=== PATIENT | female | born 1945 | race Caucasian/White ===

== ENCOUNTER 2019-07-14 08:29 | Emergency (ER) | payer MEDICARE, BC ==
--- NOTE | 2019-07-14 08:45 | EDM.PDOC ---
ED HPI GENERAL MEDICAL PROBLEM - General Time Seen by Provider: 07/14/19 08:42 Source of Information: Reports: Patient History Limitations: Reports: No Limitations - History of Present Illness INITIAL COMMENTS - FREE TEXT/NARRATIVE: 74-year-old female who reports at approximately 745 this morning she developed a sharp and stabbing type pain in her right scapular area that seemed to radiate to her right lateral chest and into her right shoulder. It was rated by her at this time as a 7/10. It occurred while she was watching TV with her and drinking a cup of coffee. She had no diaphoresis associated with this. There was no dizziness or weakness or near syncope associated with this. No nausea or vomiting. The pain did not seem to get any better or worse with anything that she did. Specifically there was no change with palpation or movement and there was no change with deep breath. The pain has now decreased to a 3/10. No abdominal pain. No fevers or chills. She has had no antecedent symptoms other than recent dyspnea on exertion which was evaluated with some type of test through her video game engineer at [facility] just this last week and she tells me that it was "normal". She has had no cough or nasal congestion. She has been eating and drinking normally. There are no other associated signs or symptoms. There are no other modifying factors. Onset: Today (7:45 AM) Duration: Improving Location: Reports: Chest, Back Quality: Reports: Sharp Severity: Moderate Improves with: Reports: None Worsens with: Reports: None Context: Reports: Other (As above) Associated Symptoms: Reports: No Other Symptoms Treatments DECORATOR LIGHTING FIXTURES: Reports: Other (see below) (Nothing.) chest/back Pain Score (Numeric/FACES): 3 - Related Data Allergies Allergy/AdvReac Type Severity Reaction Status Date / Time No Known Allergies Allergy Verified 07/14/19 08:37 Home Meds: Home Meds Apixaban [Eliquis] 5 mg PO BID 07/14/19 [History] Calcium Citrate 950 mg PO BID 07/14/19 [History] Ferrous Sulfate [Iron] 325 mg PO DAILY 07/14/19 [History] Glucosam/Henry-Msm1/C/Franck/Bosw [Osteo Bi-Flex Caplet] 1 each PO DAILY 07/14/19 [ History] Magnesium Oxide 250 mg PO DAILY 07/14/19 [History] Multivitamin/Iron/Folic Acid [Centrum Adults Tablet] 1 tab PO DAILY 07/14/19 [ History] Omeprazole 40 mg PO DAILY 07/14/19 [History] Oxybutynin [Oxybutynin ER] 10 mg PO BID 07/14/19 [History] Past Medical History Cardiovascular History: Reports: Afib (On Eliquis) Gastrointestinal History: Reports: GERD Genitourinary History: Reports: Other (See Below) (Overactive bladder) Musculoskeletal History: Reports: Other (See Below) (Breasts leg syndrome) - Past Surgical History GI Surgical History: Reports: Cholecystectomy Musculoskeletal Surgical History: Reports: Hip Replacement (Left total hip replacement) Social & Family History - Tobacco Use Smoking Status *Q: Never Smoker - Alcohol Use Alcohol Use History: Yes Alcohol Use in Last Twelve Months: Yes Alcohol Use Frequency: Daily (1 drink every night.) - Living Situation & Occupation Living situation: Reports: (She is here with her ) 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 Denies: Pleuritic Chest Pain, Cough Cardiovascular: Reports: Chest Pain (Right lateral), Dyspnea on Exertion ( Ongoing for some time). Denies: Lightheadedness Endocrine: Reports: No Symptoms GI/Abdominal: Reports: No Symptoms : Reports: No Symptoms Musculoskeletal: Reports: Back Pain (Right subscapular pain) Skin: Reports: No Symptoms Neurological: Reports: No Symptoms Psychiatric: Reports: No Symptoms Hematologic/Lymphatic: Reports: No Symptoms Immunologic: Reports: No Symptoms ED EXAM, GENERAL - Physical Exam Exam: See Below Exam Limited By: No Limitations General Appearance: Alert, WD/WN, Mild Distress Eye Exam: Bilateral Eye: EOMI, Normal Inspection, PERRL Ears: Normal External Exam, Hearing Grossly Normal Ear Exam: Bilateral Ear: Auricle Normal Nose: Normal Inspection, Normal Mucosa, No Blood Throat/Mouth: Normal Inspection, Normal Oropharynx, Normal Voice, No Airway Compromise Head: Atraumatic, Normocephalic Neck: Normal Inspection, Supple, Non-Tender, Full Range of Motion Respiratory/Chest: No Respiratory Distress, Lungs Clear, Normal Breath Sounds, No Accessory Muscle Use, Chest Non-Tender Cardiovascular: Normal Peripheral Pulses, No JVD, No Murmur, Other (Somewhat irregular rhythm with long pauses) Peripheral Pulses: 2+: Radial (L), Radial (R), Dorsalis Pedis (L), Dorsalis Pedis (R) GI/Abdominal: Normal Bowel Sounds, Soft, Non-Tender, No Mass Back Exam: Normal Inspection, Full Range of Motion Extremities: Normal Inspection, Normal Range of Motion, Non-Tender, No Pedal Edema, Normal Capillary Refill Neurological: Alert, Oriented, CN II-XII Intact, Normal Cognition, No Motor/ Sensory Deficits Psychiatric: Normal Affect Skin Exam: Warm, Dry, Intact, Normal Color, No Rash EKG INTERPRETATION EKG Date: 07/14/19 Time: 08:50 Rhythm: Other (What appears to be intermittent heart block and I question second degree type II) [place]: Normal P-Wave: Variable QRS: RBBB ST-T: Normal QT: Prolonged Comparison: NA - No Prior EKG Course - Vital Signs Last Recorded V/S: Last Vital Signs Temp 36.6 C 07/14/19 08:29 Pulse 66 07/14/19 10:32 Resp 17 07/14/19 10:32 BP 129/81 07/14/19 10:32 Pulse Ox 99 07/14/19 10:32 - Orders/Labs/Meds Orders: Active Orders 24 hr Category Date Time Status EKG Documentation Completion [RC] ASDIRECTED Care 07/14/19 09:04 Active Ang Abdomen [CT] Stat Exams 07/14/19 10:50 Taken Ang Chest [CT] Stat Exams 07/14/19 10:50 Taken Ang Pelvis [CT] Stat Exams 07/14/19 09:52 Ordered Sodium Chloride 0.9% [Saline Flush] Med 07/14/19 09:02 Active 10 ml FLUSH ASDIRECTED PRN Peripheral IV Insertion Adult [OM.PC] Routine Oth 07/14/19 09:02 Ordered EKG 12 Lead [EK] Routine Ther 07/14/19 09:02 Ordered Medication Orders Sodium Chloride (Saline Flush) 10 ml FLUSH ASDIRECTED PRN PRN Reason: Keep Vein Open Last Admin: 07/14/19 08:55 Dose: 10 ml Labs: Laboratory Tests 05/04/20 05/04/20 05/04/20 Range/Units 09:15 09:15 09:15 WBC 4.5 (4.5-12.0) X10-3/uL RBC 3.99 (3.23-5.20) x10(6)uL Hgb 12.6 (11.5-15.5) g/dL Hct 37.4 (30.0-51.3) % MCV 93.8 (80-96) fL MCH 31.7 (27.7-33.6) pg MCHC 33.8 (32.2-35.4) g/dL RDW 12.7 (11.5-15.5) % Plt Count 289 (125-369) X10(3)uL MPV 7.1 L (7.4-10.4) fL Neut % (Auto) 57.1 (46-82) % Lymph % (Auto) 25.9 (13-37) % [place] % (Auto) 13.3 H (4-12) % Eos % (Auto) 3 (1.0-5.0) % Baso % (Auto) 1 (0-2) % Neut # (Auto) 2.6 (1.6-8.3) # Lymph # (Auto) 1.2 (0.6-5.0) # Lenoir # (Auto) 0.6 (0.0-1.3) # Eos # (Auto) 0.1 (0.0-0.8) # Baso # (Auto) 0.0 (0.0-0.2) # PT 11.6 H (9.0-11.1) sec INR 1.08 (1.00-1.24) D-Dimer, Quantitative 0.34 (0.0-0.59) mg/LFEU Sodium 137 (135-145) mmol/L Potassium 4.2 (3.5-5.3) mmol/L Chloride 100 (100-110) mmol/L Carbon Dioxide 30 (21-32) mmol/L BUN 12 (7-18) mg/dL Creatinine 0.9 (0.55-1.02) mg/dL Est Cr Clr Drug Dosing 49.35 mL/min Estimated GFR (MDRD) > 60 (>60) BUN/Creatinine Ratio 13.3 (9-20) Glucose 100 (80-116) mg/dL Calcium 8.8 (8.6-10.2) mg/dL Total Bilirubin 0.5 (0.1-1.3) mg/dL AST 27 H (5-25) IU/L ALT 22 (12-36) U/L Alkaline Phosphatase 142 H (56-112) IU/L Troponin I (4.0-60.3) pg/mL C-Reactive Protein (0.5-0.9) mg/dL Total Protein 7.8 (6.0-8.0) g/dL Albumin 3.5 (3.2-4.6) g/dL Globulin 4.3 g/dL Albumin/Globulin Ratio 0.8 07/14/19 Range/Units 09:15 WBC (4.5-12.0) X10-3/uL RBC (3.23-5.20) x10(6)uL Hgb (11.5-15.5) g/dL Hct (30.0-51.3) % MCV (80-96) fL MCH (27.7-33.6) pg MCHC (32.2-35.4) g/dL RDW (11.5-15.5) % Plt Count (125-369) X10(3)uL MPV (7.4-10.4) fL Neut % (Auto) (46-82) % Lymph % (Auto) (13-37) % Len[place] % (Auto) (4-12) % Eos % (Auto) (1.0-5.0) % Baso % (Auto) (0-2) % Neut # (Auto) (1.6-8.3) # Lymph # (Auto) (0.6-5.0) # Lenoir # (Auto) (0.0-1.3) # Eos # (Auto) (0.0-0.8) # Baso # (Auto) (0.0-0.2) # PT (9.0-11.1) sec INR (1.00-1.24) D-Dimer, Quantitative (0.0-0.59) mg/LFEU Sodium (135-145) mmol/L Potassium (3.5-5.3) mmol/L Chloride (100-110) mmol/L Carbon Dioxide (21-32) mmol/L BUN (7-18) mg/dL Creatinine (0.55-1.02) mg/dL Est Cr Clr Drug Dosing mL/min Estimated GFR (MDRD) (>60) BUN/Creatinine Ratio (9-20) Glucose (80-116) mg/dL Calcium (8.6-10.2) mg/dL Total Bilirubin (0.1-1.3) mg/dL AST (5-25) IU/L ALT (12-36) U/L Alkaline Phosphatase (56-112) IU/L Troponin I 183.8 H* (4.0-60.3) pg/mL C-Reactive Protein 0.5 (0.5-0.9) mg/dL Total Protein (6.0-8.0) g/dL Albumin (3.2-4.6) g/dL Globulin g/dL Albumin/Globulin Ratio Meds: Medications Generic Name Dose Route Start Last Admin Trade Name Freq PRN Reason Stop Dose Admin Sodium Chloride 10 ml 07/14/19 09:02 07/14/19 08:55 Saline Flush FLUSH 10 ml ASDIRECTED PRN Administration Keep Vein Open Discontinued Medications Generic Name Dose Route Start Last Admin Trade Name Freq PRN Reason Stop Dose Admin Aspirin 324 mg 07/14/19 11:14 Aspirin PO 07/14/19 11:15 ONETIME ONE Sodium Chloride 500 mls @ 999 mls/hr 07/14/19 09:54 07/14/19 10:21 Normal Saline IV 07/14/19 10:24 999 mls/hr .BOLUS ONE Administration Iopamidol 100 ml 07/14/19 10:10 07/14/19 10:22 Isovue-370 (76%) IV 07/14/19 10:11 97 ml ONETIME ONE Administration - Radiology Interpretation Free Text/Narrative:: Portable chest x-ray shows cardiomegaly but no acute pathology per the radiologist. - Re-Assessments/Exams Free Text/Narrative Re-Assessment/Exam: 07/14/19 09:45: Patient reports her pain is continuing at about a 3/10. She has no shortness of breath. No nausea or vomiting. She has remained vitally stable. Her initial troponin is elevated at 183. I will order a CTA of her chest, abdomen and pelvis. We will continue close monitoring and after the results of this test are back, I will discuss the patient's case with the video game engineer at [facility] in [place]. 07/14/19 11:10: CTA of the chest, abdomen and pelvis shows no evidence of dissection or any other acute abnormality. The patient remains hemodynamically stable. Her pain is still at a 3/10. With her apparent second-degree Mobitz type II AV block and her elevated troponin, she will need cardiology and cardiology specially services which are not available at [facility] and the patient is followed by a video game engineer at [facility]. I will call and discuss the patient's case with the doctors at [facility] in [place]. 07/14/19 11:25: I discussed patient's case with Dr. Neri, hospitalist at [facility] in [place], and he has agreed to accept the patient in transfer. I have ordered aspirin 324 mg to be given to the patient and Dr. Neri did not command any additional therapy at this time. The patient and her are in agreement with the plans for transfer. Departure - Departure Time of Disposition: 11:45 Disposition: DC/Tfer to [facility] 02 Reason for Transfer *Q: Other (Patient with elevated troponin and heart block.) Condition: Fair (Stable) Clinical Impression: Heart block AV second degree, Elevated troponin I level Chest pain Qualifiers: Chest pain type: unspecified Qualified Code(s): R07.9 - Chest pain, unspecified Referrals: PCP,None [Primary Care Provider] - Sepsis Event Note - Focused Exam Vital Signs: Vital Signs Temp Pulse Resp BP Pulse Ox 07/14/19 10:32 66 17 129/81 99 07/14/19 09:15 18 117/61 99 07/14/19 09:00 17 147/63 H 99 07/14/19 08:45 15 134/69 98 07/14/19 08:30 16 150/58 H 97 07/14/19 08:29 36.6 C 59 L 16 150/58 H 99 Date Exam was Performed: 07/14/19 Time Exam was Performed: 11:25 - My Orders Last 24 Hours: My Active Orders 07/14/19 09:02 Sodium Chloride 0.9% [Saline Flush] 10 ml FLUSH ASDIRECTED PRN Peripheral IV Insertion Adult [OM.PC] Routine EKG 12 Lead [EK] Routine 07/14/19 09:04 EKG Documentation Completion [RC] ASDIRECTED 07/14/19 09:52 Ang Pelvis [CT] Stat 07/14/19 10:50 Ang Abdomen [CT] Stat Ang Chest [CT] Stat - Assessment/Plan Last 24 Hours: My Active Orders 07/14/19 09:02 Sodium Chloride 0.9% [Saline Flush] 10 ml FLUSH ASDIRECTED PRN Peripheral IV Insertion Adult [OM.PC] Routine EKG 12 Lead [EK] Routine 07/14/19 09:04 EKG Documentation Completion [RC] ASDIRECTED 07/14/19 09:52 Ang Pelvis [CT] Stat 07/14/19 10:50 Ang Abdomen [CT] Stat Ang Chest [CT] Stat
[2019-07-14] MEDS ORDERED: Sodium Chloride 0.9% 10 ML Syringe FLUSH PRN (09:02)
[2019-07-14] MEDS ORDERED: Sodium Chloride 0.9% 500 ML IV ONE (09:54)
[2019-07-14] MEDS ORDERED: Iopamidol 755 Mg/ML 100 ML Bottle IV ONE (10:10)
--- NOTE | 2019-07-14 10:14 | CR ---
INDICATION: Chest pain. CHEST, 1 VIEW: An AP, upright portable view of the chest 07/14/19 revealed the heart to be enlarged in appearance. The aorta is tortuous with calcification in the arch. Overlying EKG leads are noted. An active infiltrate or effusion was not identified. IMPRESSION: 1. No acute process. 2. ASHD. MTDD
[2019-07-14] MEDS ORDERED: Aspirin 81 MG Tab.Chew PO ONE (11:14)
--- NOTE | 2019-07-14 12:13 | CT ---
INDICATION: Right mid back and chest pain radiating to upper abdomen in the back. COMPUTERIZED TOMOGRAPHY ANGIOGRAPHY OF CHEST AND ABDOMEN: Spiral 1.25 mm axial sections were obtained through the chest and abdomen with 97 cc Isovue 370 at 3 cc per second with sagittal and coronal reconstructions for computed tomography angiography of the aorta. Examination was obtained 07/14/19 - no comparisons. Total exam DLP was 569.23 mGy-cm including the chest and abdomen. CT CHEST: Examination of the chest was obtained by CT as noted above and revealed no definite mediastinal mass. The heart is enlarged with suggestion of coronary artery calcifications, but not well delineated. Calcification is noted in the aorta. A small fixed hiatal hernia is suggested. No aneurysmal dilatation of the aorta was suggested - no intimal dissection was seen. A definite active infiltrate or effusion was not identified. IMPRESSION: 1. No aneurysmal dilatation of the aorta or central vessels, no intimal dissection noted. 2. Small fixed hiatal hernia. 3. ASHD/ASD. CT ABDOMEN: Examination of the abdomen was obtained by CT as noted above revealing calcifications in the aorta and renal arteries as well as iliac arteries. No aneurysmal dilatation of the aorta was identified. No definite intimal dissection could be identified. The gallbladder is absent compatible with history of its removal. The stomach was not distended making it difficult to exclude gastric wall thickening. This should be correlated clinically. The liver appeared normal. The kidneys and adrenal glands, spleen, and pancreas appear normal. Common bile duct was normal in caliber in head of the pancreas. No definite retroperitoneal mass was seen. No free air or bowel obstruction was identified. There may be some mild thickening of the wall of the distal descending - proximal sigmoid colon which could be on the basis of colitis, but should te correlated clinically. No mass lesions or organomegaly or free fluid collections were otherwise suggested in the abdomen. No evidence of hernia was seen. A small fixed hiatal hernia is suggested. IMPRESSION: 1. No aneurysmal dilatation or intimal dissection of the aorta noted. 2. Small fixed hiatal hernia. 3. ASD. 4. Post cholecystectomy. 5. Slight thickening of the wall of the distal descending - proximal sigmoid colon, etiology indeterminate, could represent colitis - correlate clinically. 6. Lugs-gq-mfeohuzh degenerative changes are noted in the thoracolumbar spine with compression fracture of indeterminate age at T12 of [id number] degree of with anterior vertebral body height loss and superior endplate loss, hypertrophic spurring anteriorly is most severe at the T11-12 level. Degenerative disk disease is also noted at L1-2 with vacuum disk phenomenon with [id number] hypertrophic changes of vertebral bodies at that level. There is also narrowing of the disk space and grade 1 anterolisthesis at L4-5 with no significant hypertrophic changes at that level, but with evidence of disk disease at that level. Report was called to Dr. Harvey at [address] [facility]
== END 2019-07-14 12:00 ==
LOC: FB.ED 08:29
DX: I44.1 Atrioventricular block, second degree (principal); R79.89 Other specified abnormal findings of blood chemistry; I48.91 Unspecified atrial fibrillation; K21.9 Gastro-esophageal reflux disease without esophagitis; Z79.899 Other long term (current) drug therapy
CPT/HCPCS: 36415; 71045; 71275; 74175; 80053; 84484; 85025; 85379; 85610; 86140; 93005; 93010; 99285; 99285-25; A9270-GY; J7040; Q9967

== ENCOUNTER 2020-09-01 13:00 | Emergency (ER) | payer MEDICARE, BC ==
[2020-09-01] MEDS ORDERED: Sodium Chloride 0.9% 10 ML Syringe FLUSH PRN (13:14)
--- NOTE | 2020-09-01 14:34 | EDM.PDOC ---
ED HPI GENERAL MEDICAL PROBLEM - General Chief Complaint: Respiratory Problem Stated Complaint: SOB Time Seen by Provider: 09/01/20 13:10 Source of Information: Reports: Patient History Limitations: Reports: No Limitations - History of Present Illness INITIAL COMMENTS - FREE TEXT/NARRATIVE: Patient presented to the ED because of dyspnea,edema for the past 2-3 days. She underwent Valvular Heart Surgery-MVR and TVR on 08/19/20. She was discharged to home with oxygen, Lasix 40 dailt and KCL 8 meq daily. There is no fever, chills,cough or cold. Chest Pain Score (Numeric/FACES): 2 - Related Data Allergies Allergy/AdvReac Type Severity Reaction Status Date / Time No Known Allergies Allergy Verified 07/14/19 08:37 Home Meds: Home Meds Apixaban [Eliquis] 5 mg PO BID 07/14/19 [History] Calcium Citrate 950 mg PO BID 07/14/19 [History] Ferrous Sulfate [Iron] 325 mg PO DAILY 07/14/19 [History] Glucosam/Henry-Msm1/C/Franck/Bosw [Osteo Bi-Flex Caplet] 1 each PO DAILY 07/14/19 [History] Magnesium Oxide 250 mg PO DAILY 07/14/19 [History] Multivitamin/Iron/Folic Acid [Centrum Adults Tablet] 1 tab PO DAILY 07/14/19 [History] Omeprazole 40 mg PO DAILY 07/14/19 [History] Oxybutynin [Oxybutynin ER] 10 mg PO BID 07/14/19 [History] Past Medical History Cardiovascular History: Reports: Afib, Heart Valve Replacement Other Cardiovascular History: Three heart valve replacements on 08/19/20. 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 GENERAL - Review of Systems Review Of Systems: See Below Constitutional: Reports: No Symptoms HEENT: Reports: No Symptoms Respiratory: Reports: Shortness of Breath, Cough Cardiovascular: Reports: No Symptoms Endocrine: Reports: No Symptoms GI/Abdominal: Reports: No Symptoms : Reports: No Symptoms Musculoskeletal: Reports: Joint Swelling Skin: Reports: No Symptoms Neurological: Reports: No Symptoms Psychiatric: Reports: No Symptoms ED EXAM, GENERAL - Physical Exam Exam: See Below Exam Limited By: No Limitations General Appearance: Alert, No Apparent Distress Eye Exam: Bilateral Eye: PERRL Ears: Normal External Exam, Normal Canal Nose: Normal Inspection, Normal Mucosa, No Blood Throat/Mouth: Normal Inspection, Normal Lips, Normal Teeth, Normal Gums Head: Atraumatic, Normocephalic Neck: Normal Inspection, Supple, Non-Tender, Full Range of Motion Respiratory/Chest: No Respiratory Distress, Lungs Clear, Normal Breath Sounds, No Accessory Muscle Use, Chest Non-Tender Cardiovascular: Normal Peripheral Pulses, Regular Rate, Rhythm, No Edema, No Gallop, No JVD, No Murmur GI/Abdominal: Normal Bowel Sounds, Soft, Non-Tender, No Organomegaly, No Distention, No Abnormal Bruit Back Exam: Normal Inspection, Full Range of Motion Extremities: Normal Inspection, Normal Range of Motion, Non-Tender Neurological: Alert, Oriented, CN II-XII Intact #1 Interpretation EKG Date: 09/01/20 Time: 13:39 Rhythm: NSR Rate (Beats/Min): 61 [place]: Normal P-Wave: Present QRS: Normal ST-T: Normal QT: Prolonged Comparison: No Change EKG Interpretation Comments: Ventricular paced rhythm Prolonged NE interval RBBB Course - Vital Signs Text/Narrative:: Lab/EKG/CXR result was reviewed and discussed with patient Lasix 40 mg IV x1 Zaroxolyn 2.5 mg po x1 Cardiology /CT Surgery consult was done with Dr White and she want Katya to increase the dose of her lasix fron 40 mg daily to twice daily and KCL 8 meq to 16 meq daily. she has an upcoming appointment to see Dr Mustafa on 09/06 Last Recorded V/S: Last Vital Signs Temp 36.9 C 09/01/20 13:10 Pulse 61 09/01/20 15:23 Resp 16 09/01/20 15:23 BP 110/56 L 06/23/21 15:23 Pulse Ox 96 09/01/20 15:23 - Orders/Labs/Meds Orders: Active Orders 24 hr Category Date Time Status Saline Lock Insert [OM.PC] Routine Oth 09/01/20 13:14 Ordered EKG 12 Lead [EK] Routine Ther 09/01/20 13:14 Ordered Labs: Laboratory Tests 09/01/20 09/01/20 09/01/20 Range/Units 13:40 13:40 13:40 WBC 10.1 (3.0-10.3) x10-3/uL RBC 2.86 L (3.60-5.20) x10(6)uL Hgb 8.8 L (11.4-15.5) g/dL Hct 26.8 L (34.2-48.2) % MCV 93.5 (76.7-100.5) fL MCH 30.8 (23.9-33.9) pg MCHC 32.9 (31.9-34.8) g/dL RDW 14.2 (12.3-16.5) % Plt Count 347 (151-488) x10(3)uL MPV 7.8 (7.1-12.4) fL Neut % (Auto) 75.9 (30.8-76.2) % Lymph % (Auto) 9.0 L (18.4-52.1) % Giles % (Auto) 13.7 (4.4-15.7) % Eos % (Auto) 1.0 (0.6-8.1) % Baso % (Auto) 0.4 (0.2-1.5) % Neut # (Auto) 7.6 H (1.5-6.3) x10-3/uL Lymph # (Auto) 0.9 L (1.0-4.4) x10-3/uL Giles # (Auto) 1.4 H (0.3-1.0) x10-3/uL Eos # (Auto) 0.1 (0.0-0.8) x10-3/uL Baso # (Auto) 0.0 (0.0-0.1) x10-3/uL Sodium 135 (135-145) mmol/L Potassium 3.7 (3.5-5.3) mmol/L Chloride 95 L D (100-110) mmol/L Carbon Dioxide 30 (21-32) mmol/L BUN 40 H D (7-18) mg/dL Creatinine 1.3 H (0.55-1.02) mg/dL Est Cr Clr Drug Dosing 33.65 mL/min Estimated GFR (MDRD) 40 L (>60) BUN/Creatinine Ratio 30.8 H (9-20) Glucose 99 (80-116) mg/dL Calcium 8.8 (8.6-10.2) mg/dL Total Bilirubin 0.8 (0.1-1.3) mg/dL AST 30 H D (5-25) IU/L ALT 20 (12-36) U/L Alkaline Phosphatase 200 H (56-112) IU/L Troponin I 520.2 H* (4.0-60.3) pg/mL NT-Pro-B Natriuret Pep 4978 H* (<=450) pg/mL Total Protein 8.0 (6.0-8.0) g/dL Albumin 3.0 L (3.2-4.6) g/dL Globulin 5.0 g/dL Albumin/Globulin Ratio 0.6 Meds: Medications Discontinued Medications Generic Name Dose Route Start Last Admin Trade Name Freq PRN Reason Stop Dose Admin Furosemide 40 mg 09/01/20 14:51 09/01/20 15:00 Furosemide 40 Mg/4 Ml Vial IVPUSH 09/01/20 14:52 40 mg NOW ONE Administration Metolazone 2.5 mg 09/01/20 14:51 09/01/20 15:00 Metolazone 2.5 Mg Tab PO 09/01/20 14:52 2.5 mg NOW STA Administration Sodium Chloride 10 ml 09/01/20 13:14 09/01/20 15:01 Sodium Chloride 0.9% 10 Ml Syringe FLUSH 10 ml ASDIRECTED PRN Administration Keep Vein Open Departure - Departure Time of Disposition: 15:30 Disposition: Home, Self-Care 01 Condition: Good Clinical Impression: CHF (congestive heart failure), Tricuspid valve replaced, Elevated troponin - Discharge Information Instructions: Heart Failure, Self Care, Prbi-[id number], Valvuloplasty, Care After Referrals: PCP,Not In Area [Primary Care Provider] - Forms: ED Department Discharge Additional Instructions: Please read discharge instructions on CHF, Valvular heart surgery Increase your lasix/furosemide from 40 mg daily to 4o mg twice daily Potassium 8 meq daily to 16 meq daily Keep you appointment to see the squilgeer on 09/[address] White on 09/06 You can use your oxygen at 2-4L/min Sepsis Event Note (ED) - Evaluation Sepsis Screening Result: No Definite Risk - Focused Exam Vital Signs: Vital Signs Temp Pulse Resp BP Pulse Ox 09/01/20 15:23 61 16 110/56 L 96 09/01/20 13:10 36.9 C 61 80 H 110/56 L 98 - My Orders Last 24 Hours: My Active Orders 09/01/20 13:14 Saline Lock Insert [OM.PC] Routine EKG 12 Lead [EK] Routine - Assessment/Plan Last 24 Hours: My Active Orders 09/01/20 13:14 Saline Lock Insert [OM.PC] Routine EKG 12 Lead [EK] Routine
--- NOTE | 2020-09-01 14:36 | CR ---
INDICATION: Dyspnea. Recent valve repairs. CHEST ONE VIEW: AP portable upright view of the chest 09/01/20 was compared with 07/13/20 and revealed interval valvular surgery with median sternotomy. Interval placement of bipolar pacemaker leads noted with the tip at the area of the apex of the right ventricle. The heart is enlarged. Pulmonary vasculature is prominent and congested with interstitial changes compatible with CHF and interstitial as well as possibly mild alveolar lung edema. Small pleural effusions are suggested. There may be some atelectatic changes at the lung bases although pneumonia cannot be excluded with pleuritis. Very poor inspiration is noted apparently secondary to the recent surgery (August 19). MTDD
[2020-09-01] MEDS ORDERED: Metolazone 2.5 MG Tab PO STA (14:51)
[2020-09-01] MEDS ORDERED: Furosemide 40 MG/4 ML VIAL IVPUSH ONE (14:51)
== END 2020-09-01 15:35 | disposition home or self-care (01) ==
LOC: FB.ED 13:00
DX: I50.9 Heart failure, unspecified (principal); R79.89 Other specified abnormal findings of blood chemistry; I48.91 Unspecified atrial fibrillation
CPT/HCPCS: 36415; 71045; 80053; 83880; 84484; 85025; 93005; 93010; 96374; 99284; 99285-25; A9270-GY; J1940

== ENCOUNTER 2022-11-21 06:34 | Day surgery (SDC) | payer MEDICARE, BC ==
[~2022-11-21 06:34] MED LIST: Lactated Ringers 1,000 ML IV PRN
[2022-11-21] MEDS ORDERED: fentaNYL 100 MCG/2 ML SDV IV ONE (06:35)
[2022-11-21] MEDS ORDERED: Midazolam 1 MG/ML 2 ML SDV IV ONE (06:35)
[2022-11-21] MEDS: Sodium Chloride 0.9% 10 ML Syringe FLUSH PRN (07:40)
[2022-11-21] MEDS: acetaZOLAMIDE 500 MG Cap.ER PO ONE (08:50)
== END 2022-11-21 09:30 | disposition home or self-care (01) ==
LOC: FB.SDS 06:34
PROVIDERS: ATTEND Ophthalmology
DX: H25.13 Age-related nuclear cataract, bilateral (principal); H35.3132 Nonexudative age-related macular degeneration, bilateral, intermediate dry stage; H04.123 Dry eye syndrome of bilateral lacrimal glands; H52.13 Myopia, bilateral; H52.223 Regular astigmatism, bilateral; H52.201 Unspecified astigmatism, right eye; K21.9 Gastro-esophageal reflux disease without esophagitis; G47.33 Obstructive sleep apnea (adult) (pediatric); I48.19 Other persistent atrial fibrillation; Z79.899 Other long term (current) drug therapy; Z98.890 Other specified postprocedural states
CPT/HCPCS: 00142; A9270-GY; J2250; J3010; J3490; V2788-GY

== ENCOUNTER 2022-12-05 07:35 | Day surgery (SDC) | payer MEDICARE, BC ==
[2022-12-05] MEDS ORDERED: Midazolam 1 MG/ML 2 ML SDV IV ONE (07:36)
[2022-12-05] MEDS ORDERED: fentaNYL 100 MCG/2 ML SDV IV ONE (07:36)
[2022-12-05] MEDS ORDERED: Sodium Chloride 0.9% 10 ML Syringe IV ONE (07:36)
[2022-12-05] MEDS ORDERED: Sodium Chloride 0.9% 10 ML Syringe FLUSH PRN (08:00)
[2022-12-05] MEDS ORDERED: Lactated Ringers 1,000 ML IV PRN (08:00)
[2022-12-05] MEDS ORDERED: acetaZOLAMIDE 500 MG Cap.ER PO ONE (10:15)
== END 2022-12-05 10:35 | disposition home or self-care (01) ==
LOC: FB.SDS 07:35
PROVIDERS: ATTEND Ophthalmology
DX: H25.9 Unspecified age-related cataract (principal); H52.202 Unspecified astigmatism, left eye; I48.19 Other persistent atrial fibrillation; I50.32 Chronic diastolic (congestive) heart failure; G47.30 Sleep apnea, unspecified; K21.9 Gastro-esophageal reflux disease without esophagitis; G47.33 Obstructive sleep apnea (adult) (pediatric); Z79.899 Other long term (current) drug therapy; Z79.01 Long term (current) use of anticoagulants; M16.11 Unilateral primary osteoarthritis, right hip
CPT/HCPCS: 00732; 66984; A9270; J2250; J3010; J3490